=== PATIENT | male | born 1970 | race Caucasian/White ===

== ENCOUNTER 2016-09-20 20:52 | Emergency (ER) | payer BC ==
--- NOTE | 2016-09-28 21:19 | ER ---
ADMIT: 09/20/2016 RM/LOC: ER [facility] MR#: [id number] [facility] [id number] NATALIO COOK [address] [place] [address] Emergency Room Report SEX: M AGE: 46 : 1970 DATE: 09/20/2016 ADDENDUM: CHIEF COMPLAINT: Shortness of breath. HISTORY OF PRESENT ILLNESS: This is a 46-year-old male that follow up his primary care provider this afternoon. He was given Rocephin, sent home with Biaxin and prednisone and codeine. He comes tonight just increased cough and increased shortness of breath. He aches allover. I test him for influenza and did chest x-rays. Chest x-rays negative for any pneumonia. His influenza is positive for A. I have given him albuterol and Tamiflu, sent him home. Told him to push fluids. Use Motrin or Tylenol for fever and follow up if worsens. DAGOBERTO Lewis / Yunier Mckenzie MD / irajl JOB #: [id number] CC: Yunier Mckenzie MD, Attending Physician fIeoma Hoskins, Family Physician
== END 2016-09-20 22:36 | disposition home or self-care (01) ==
LOC: ER 20:52
DX: J11.1 Influenza due to unidentified influenza virus with other respiratory manifestations (principal); F17.210 Nicotine dependence, cigarettes, uncomplicated; Z88.0 Allergy status to penicillin; Z79.899 Other long term (current) drug therapy